=== PATIENT | female | born 1985 ===

== ENCOUNTER 2018-05-16 08:22 | Emergency (ER) | payer SELFPAY ==
[2018-05-16 08:29] VITALS: BP 106/65; PULSE 87; TEMP 97; O2SAT 99
[2018-05-16 08:30] VITALS: BMI 34.5
--- NOTE | 2018-05-16 09:27 | ED PDOC ---
HPI: CCC, URI, Sore Throat Time Seen by Provider: 05/16/18 08:51 Chief Complaint (Nursing): ENT Problem Chief Complaint (Provider): ENT Problem History Per: Patient History/Exam Limitations: no limitations Onset/Duration Of Symptoms: Days (x10) Current Symptoms Are (Timing): Still Present Location Of Pain: Throat Associated Symptoms: Chills, Sore Throat, Cough, Nausea, Vomiting (with blood), Other (Nose Bleed). denies: Fever, Diarrhea Additional Complaint(s): 33 y/o female with no significant PMHX presents to the ED for evaluation of throat pain associated with cough, nose bleed, chills, nausea and vomiting onset 10 days. Patient is and is currently 6 months . Patient's reports of taking Certizine prescribed to her by her PMD with no relief, promoting her visit to the ED. Patient states cough is productive with phlegm. Patient reports of vomiting only after coughing. Of note, patient reports of noticing a very slight amount of blood in cough. Denies fever, drugs and alcohol. PMD: Clinic Past Medical History Reviewed: Historical Data, Nursing Documentation, Vital Signs Vital Signs: Last Vital Signs Temp 97 F L 05/16/18 08:29 Pulse 87 05/16/18 08:29 Resp BP 106/65 05/16/18 08:29 Pulse Ox 99 05/16/18 08:29 - Medical History PMH: No Chronic Diseases - Surgical History Surgical History: No Surg Hx - Family History Family History: States: Unknown Family Hx - Living Arrangements Living Arrangements: With Family - Social History Current smoker - smoking cessation education provided: No Alcohol: None Drugs: Denies - Immunization History Hx Tetanus Toxoid Vaccination: No Hx Influenza Vaccination: No Hx Pneumococcal Vaccination: No - Home Medications Home Medications: Ambulatory Orders Medication Instructions Recorded guaiFENesin/Dextromethorphan 10 ml PO QID PRN #120 ml 05/16/18 [guaiFENesin-DM] - Allergies Allergies/Adverse Reactions: Allergies Allergy/AdvReac Type Severity Reaction Status Date / Time No Known Allergies Allergy Verified 07/07/15 16:39 Review of Systems ROS Statement: Except As Marked, All Systems Reviewed And Found Negative Constitutional: Positive for: Chills. Negative for: Fever ENT: Positive for: Throat Pain, Other (Nose Bleed) Respiratory: Positive for: Cough, Hemoptysis Gastrointestinal: Positive for: Nausea, Vomiting. Negative for: Diarrhea Physical Exam - Reviewed Nursing Documentation Reviewed: Yes Vital Signs Reviewed: Yes - Physical Exam Appears: Positive for: Well Head Exam: Positive for: ATRAUMATIC, NORMAL INSPECTION, NORMOCEPHALIC Skin: Positive for: Normal Color Eye Exam: Positive for: Normal appearance ENT: Positive for: Normal ENT Inspection, Pharynx Is (clear), TM Is/Are (are norms). Negative for: Pharyngeal Erythema, Tonsillar Exudate Neck: Positive for: Normal Cardiovascular/Chest: Positive for: Regular Rate, Rhythm. Negative for: Murmur Respiratory: Positive for: Normal Breath Sounds Gastrointestinal/Abdominal: Positive for: Normal Exam Back: Positive for: Normal Inspection Extremity: Positive for: Normal ROM Neurologic/Psych: Positive for: Alert - ECG O2 Sat by Pulse Oximetry: 99 (RA) Pulse Ox Interpretation: Normal Medical Decision Making Medical Decision Making: Time:925 Impression: Viral Syndrome Plan: Scribe Attestation: Documented by Apple Walters, acting as a scribe for Carola Bear MD. Provider Scribe Attestation: All medical record entries made by the Scribe were at my direction and p ersonally dictated by me. I have reviewed the chart and agree that the record accurately reflects my personal performance of the history, physical exam, medical decision making, and the department course for this patient. I have also personally directed, reviewed, and agree with the discharge instructions and disposition. Disposition - Clinical Impression Clinical Impression: Viral syndrome - Patient ED Disposition Is Patient to be Admitted: No Doctor Will See Patient In The: Office Counseled Patient/Family Regarding: Diagnosis, Need For Followup - Disposition Referrals: Non [facility] Provider, [Primary Care Provider] - Disposition: Routine/Home Disposition Time: 10:00 Condition: STABLE Prescriptions: guaiFENesin/Dextromethorphan [guaiFENesin-DM] 10 ml PO QID PRN #120 ml PRN Reason: Cough Instructions: Viral Upper Respiratory Infection, Adult (DC) Forms: [employer] (Indonesian) Print Language: GAMBIAN - POAlexus Present On Arrival: None
== END 2018-05-16 09:40 | disposition home or self-care (01) ==
LOC: SUPCPDRO 08:22 → H.ER 08:22
DX: B34.9 Viral infection, unspecified (principal); R04.0 Epistaxis

== ENCOUNTER 2018-09-04 04:27 | Inpatient (IN) | payer MEDICAID, SELFPAY ==
[2018-09-04 05:28] VITALS: BMI 36.2
[2018-09-04 05:59] LABS: BASO # 0.1 K/uL (0.0-0.2); BASO % 0.7 % (0.0-2.0); EOS # 0.2 K/uL (0.0-0.7); EOS % 1.8 % (0.0-4.0); HEMOGLOBIN 11.8 g/dL (12.0-16.0); LYMPH # 1.7 K/uL (1.0-4.3); LYMPH % 16.2 % (20.0-40.0); MEAN CELL VOLUME 90.2 fl (81.0-99.0); MEAN CORPUSCULAR HEMOGLOBIN 30.7 pg (27.0-31.0); MONO # 0.4 K/uL (0.0-0.8); MONO % 4.1 % (0.0-10.0); NEUT # 7.9 K/uL (1.8-7.0); NEUT % 77.2 % (50.0-75.0); RBC 3.85 Mil/uL (3.80-5.20); RED CELL DISTRIBUTION WIDTH 13.9 % (11.5-14.5); WHITE BLOOD COUNT 10.3 K/uL (4.8-10.8)
[2018-09-04] MEDS ORDERED: Lactated Ringer's 1,000 ML IV SCH ×2 (06:15→07:00)
[2018-09-04] MEDS ORDERED: OXYTOCIN/0.9 % NS 20 UNIT/1,000 ML BAG IV SCH (06:45)
[2018-09-04] MEDS ORDERED: Oxytocin 30 UNIT in NS 500 ml 30 UNITS/500 ML BAG IV ONE ×2 (06:46→11:38)
[2018-09-04 06:51] VITALS: O2SAT 98
[2018-09-04] MEDS ORDERED: Fentanyl/Bupivacaine HCl 250 ML EPI ONE (08:28)
[2018-09-04] MEDS ORDERED: Bupivacaine HCl 0.5% PF (30 ml) Inj ONE (08:28)
--- NOTE | 2018-09-04 10:04 | OBHP ---
Datetime: 09/04/2018 08:07 IP Adm Impression: Term, intrauterine ; Active labor IP Admit Plan: Admit to unit; Initiate labor protocol Admit Comment, IP Provider: 33 yo f 39.2wk present to [facility] due to contraction started at 1 am a nd vag bleed, otherwise patient have no other complains, she denies any water gush. Patient denies an y headache, chest pain, sob, abd pain, diarrhea, constipation, dysuria or polyuira. PCP: Ian Valadez Allergy None MED: PNV PMH NONE PSH NONE OBGYN 4 NVD no complication PFH NONE SOCIAL Denies smoke drink drug use. 10:03 Assessment and plan 33 yo f present to [facility] due to contraction started at 1am and vaginal bleed. Amitted to L_D f or active delivery PE Cervix 5, 70, -3 Membrane intact NO acute distress Will start Active labor protocol Anesthesia on case for epidural LR 1L at 125Ml/h LR 1L at 999ml/h Pit order for after delivery WIll admited patient to Unit for Delivery Sabri PGY1 Case discussed with attending Attending Note: Patient was seen and evaluated with the resident and I agree with the above assessment. Pelvic Type - PN: Adequate Extremities - PN: Normal Abdomen - PN: Normal Back - PN: Normal Breast - PN: Not Done Lungs - PN: Normal Heart - PN: Normal Thyroid - PN: Normal Neurologic - PN: Normal HEENT - PN: Normal General - PN: Normal FHR - Baseline A Provider: 145 Membranes, Provider: Intact Comments, ACOG Physical Exam: no acute distress heart s1 s2 heard no extra heart sound lung clear abdomen BS+ nontender PELVIC 5,70,-3 membrane intact Gestation - Est Wks by US: 39.2 EGA AdmitDate IP: 39.2 Vital Signs Provider: Reviewed; Within Normal Limits IP Chief Complaint: Uterine contractions; Maternal discomfort NICHD Variability Prov Fetus A: Moderate 6-25bpm NICHD Accel Fetus A IP Provider: [id number] NICHD Decel Fetus A IP Provider: None Dilatation, Provider: 5 Effacement, Provider: 70 Station, Provider: -3 Genitourinary Exam: Normal DTRs - PN: Not Done Datetime: 09/04/2018 07:25 FHR Category Provider Fetus A: Category I
[2018-09-04] MEDS ORDERED: Lidocaine 1% Inj (20ml) ONE (17:57)
--- NOTE | 2018-09-04 18:38 | OBDS ---
DELIVERY PERSONNEL Delivery Doctor: Lorena Gamboa MD Farmworker Fur: Linda Kang RN Resident: Dr. Nathan MATERNAL INFORMATION Delivery Anesthesia: Epidural Medications in Delivery: pitocin 30units Placenta Cultured: No Maternal Complications: None Provider Comments: Uncomplicated of a viable female with BW of and scores of 9 and 9, delivred ovar an intact Perineum. EBL: 200mls Patient tolerated trhe procedure well. LABOR SUMMARY EDC: 09/09/2018 00:00 No. Babies in Womb: 1 Attempted: No Labor Anesthesia: Epidural LABOR INFORMATION Reason for Induction: Not Applicable Onset of Labor: 09/04/2018 05:15 Oxytocin: Augmentation Group B Beta Strep: Negative Antibiotics # of Doses: n/a Antibiotics Time of Last Dose: n/a Steroids Given: None Reason Steroids Not Administered: Not Applicable MEMBRANES Membranes Rupture Method: Spontaneous Rupture of Membranes: 09/04/2018 13:52 Amniotic Fluid Color: Clear Amniotic Fluid Amount: Moderate Amniotic Fluid Odor: Normal PRESENTATION/POSITION BABY A Presentation: Cephalic
[2018-09-04] MEDS ORDERED: Oxycodone/Acetaminophen 5/325 mg Tab PO PRN ×2 (20:30→20:42)
[2018-09-04] MEDS ORDERED: Benzocaine/Menthol SPRAY TOP PRN ×2 (20:30→20:42)
[2018-09-05 05:59] LABS: BASO # 0.2 K/uL (0.0-0.2); BASO % 1.2 % (0.0-2.0); EOS # 0.2 K/uL (0.0-0.7); EOS % 1.4 % (0.0-4.0); HEMOGLOBIN 10.1 g/dL (12.0-16.0); LYMPH # 1.9 K/uL (1.0-4.3); LYMPH % 12.3 % (20.0-40.0); MEAN CELL VOLUME 91.4 fl (81.0-99.0); MEAN CORPUSCULAR HEMOGLOBIN 30.6 pg (27.0-31.0); MEAN CORPUSCULAR HGB CONC 33.5 g/dL (33.0-37.0); MEAN PLATELET VOLUME 8.4 fl (7.2-11.7); MONO # 0.8 K/uL (0.0-0.8); MONO % 5.5 % (0.0-10.0); NEUT % 79.6 % (50.0-75.0); RBC 3.3 Mil/uL (3.80-5.20); RED CELL DISTRIBUTION WIDTH 14.1 % (11.5-14.5); WHITE BLOOD COUNT 15.1 K/uL (4.8-10.8)
[2018-09-06] MEDS ORDERED: Simethicone 80 mg Chewtab PO ONE (09:01)
--- NOTE | 2018-09-06 10:55 | OBDCSUM ---
Datetime: 09/06/2018 08:15 Discharged to, Provider: Home Follow up at, Provider: [facility] Disch Instr Activity: Normal activity Disch Instr Diet: Regular Discharge Instructions, Provider: Routine instructions given Discharge Diagnosis, Provider: Term Delivered Discharge Time: 09/06/2018 10:00 Follow up in weeks, Provider: in 4-6 weeks. Disch Activity Restrictions: No lifting; Minimize stair-climbing; No sexual activity; Nothing in vag sreekanth - Olive, tampons, douche Discharge Comment, Provider: Diagnosis: 33 yo female NVD of a baby girl on 09/04/18 at 18:21 with EGA of 39.2 week at time of deliver y : Female, Wt. 3455 G, 9/9 Post- D/C Summary: No OB complications. No complications during post- period. Lochia i s less than menses. Pt able to pass gas, BM, ambulate and pass urine. Tolerate regular diet w/o N/V. Fundus firm below umbilicus level. Pt is hemodynamically stable. H/H : 10.2/30.6 Discharge Instructions given to patient: Encourage PNV 1 tab PO daily May take Ibuprofen 400mg OTC Q 6h prn for mild-mod pain if needed ED precautions: If excessive bleeding, pain that does not get relief, fever >100.4, palpitations, SOB, CP or other concerning symptom go to the ED PT was urged if feeling sad, mood swing, depression, neglect of baby, suicidal thoughts, homicidal thoughts go to ER or call 911 for help Pt should go to her Primary care doctor if have difficulty with breast feeding Luisa contacted for Appointment with DR Rory Bae PGY1 Case discussed with attending Contraception after Delivery: IUD
--- NOTE | 2018-09-06 10:55 | OBPPN ---
Datetime: 09/06/2018 09:09 PP Pain Prov: Within normal limits PP Nausea Prov: Denies PP Flatus Prov: Yes PP BM Prov: Yes PP Breasts Prov: Not Done PP Heart Prov: Normal PP Lungs Prov: Normal PP Abdomen/Uterus Prov: Normal PP Lochia Prov: Normal PP Vulva/Perineum Prov: Not Done PP Extremities Prov: Normal PP C/S Incision Prov: Not Applicable PP Progress Prov: Normal PP Comments Phys Exam Prov: See note PP Impression Prov: Normal progression PP Plan Prov: Discharge PP Progress Note Prov: S: 33 yo female NVD on 09/04/18 PPD2, Patient seen and examined at [facility]. Patient Report abd pain is mild and controlled with medication. Patient also feel gasie Pat ient ambulating with no difficulty. Tolerating regular diet without N/V. Lochia is less than menses i n volume. Patient denies HIGH, blurry vision, CP, palpitations, SOB, chills dysuria or other complaint at this time. appropriately. O: VS WNL GEN: NAD HEENT: NAD RESP: CTA b/l CV: RRR, S1 S2 normal, no murmurs ABD: Soft, uterus firm at umbilical level. Mild tender to touch, BS +. EXT: LE no edema, Jerardo's neg A/P 33 yo female NVD on 09/04/18 PPD2, with normal POD progression. Patient Hb 10.1/30.2, patien t is hemodynamically stable and asymptomatic Plan -OOB and Ambulation encouraged -Regular diet - encouraged -PNV 1 tab QD -Pain management -Simethicone stat -Discharge today home with medication. Catalino PGY1 Case discussed with attending Patient seen and examined by me this am. Agree with above note. Patient for discharge home today. --Dr. Duval Vital Signs Provider PP: Reviewed; Within Normal Limits
[2018-09-06 18:01] VITALS: BP 122/65; PULSE 74; RESP 20; TEMP 98.2
== END 2018-09-06 13:30 | disposition home or self-care (01) | DRG 560 ==
LOC: H.EROB2 04:27 → H.L&D 05:28 → H.OB/GYN 21:04
PROVIDERS: ADMIT Obstetrics & Gynecology; ATTEND Obstetrics & Gynecology
PROC: 10E0XZZ Delivery of Products of Conception, External Approach (ICD-10-PCS; principal; 2018-09-04)
DX: O80 Encounter for full-term uncomplicated delivery (principal); Z37.0 Single live birth; Z3A.39 39 weeks gestation of pregnancy